=== PATIENT | male | born 1995 | race Caucasian/White ===

== ENCOUNTER 2018-09-19 16:53 | Emergency (ER) | payer OTHER, BC ==
--- NOTE | 2018-09-19 19:18 | CR ---
INDICATION: Second finger injury. Technique : Three views right hand. IMPRESSION: Negative. Dictated by Good Turk MD @ Sep 19 2018 7:16PM Signed by Dr. Good Turk @ Sep 19 2018 7:17PM
--- NOTE | 2018-09-19 19:31 | EDM.PDOC ---
ED HPI GENERAL MEDICAL PROBLEM - General Chief Complaint: Upper Extremity Injury/Pain Stated Complaint: RT INDEX FINGER POSSIBLY BROKE Time Seen by Provider: 09/19/18 18:20 Source of Information: Reports: Patient History Limitations: Reports: No Limitations - History of Present Illness INITIAL COMMENTS - FREE TEXT/NARRATIVE: HISTORY AND PHYSICAL: History of present illness: Patient is a 23-year-old male presents to the ED today with concern of right index finger injury that occurred while at work today. He states he had a piece of typing slammed his finger. Patient states following that he had noticed blood under the fingernail. Patient states he does have full range of motion and sensation of the complete hand and has been working since the incident. Patient states he does need a urine drug screen done on exam today in order to get this appointment covered by worker's compensation. Patient denies any other symptoms at this time. Patient denies fever, chills, chest pain, shortness of breath, or cough. Denies headache, neck stiff ness, change in vision, syncope, or near syncope. Denies nausea, vomiting, abdominal pain, diarrhea, constipation, or dysuria. Has not noted any blood in urine or stool. Patient has been eating and drinking appropriately. Review of systems: As per history of present illness and below otherwise all systems reviewed and negative. Past medical history: As per history of present illness and as reviewed below otherwise noncontributory. Surgical history: As per history of present illness and as reviewed below otherwise noncontributory. Social history: See social history for further information Family history: As per history of present illness and as reviewed below otherwise noncontributory. Physical exam: General: Patient is alert, oriented, and in no acute distress. Patient sitting comfortably on exam table. HEENT: Atraumatic, normocephalic, pupils equal and reactive bilaterally, negative for conjunctival pallor or scleral icterus, mucous membranes moist, TMs normal bilaterally, throat clear, neck supple, nontender, trachea midline. No drooling or trismus noted. No meningeal signs. No hot potato voice noted. Lungs: Clear to auscultation, breath sounds equal bilaterally, chest nontender. Heart: S1S2, regular rate and rhythm without overt murmur Abdomen: Soft, nondistended, nontender. Negative for masses or hepatosplenomegaly. Negative for costovertebral tenderness. Pelvis: Stable nontender. Genitourinary: Deferred. Rectal: Deferred. Skin: Intact, warm, dry. No lesions or rashes noted. Extremities: negative for cords or calf pain. Neurovascular unremarkable. Right index finger does have an underlying hematoma at the nail bed with the nail bed intact and nail intact. Patient has full range of motion of all digits of the right extremity and wrist. Radial pulses grossly intact with capillary refill less than 2 seconds. Neuro: Awake, alert, oriented. Cranial nerves II through XII unremarkable. Cerebellum unremarkable. Motor and sensory unremarkable throughout. Exam nonfocal. Notes: Usual customary procedures were used to remove the subungual hematoma. Electrocautery used to relieve the subungual hematoma. A small hole was placed in the nail with drainage of the underlying blood. Patient tolerated procedure well. Voices understanding and is agreeable to plan of care. Denies any further questions or concerns at this time. Diagnostics: hand XR, drug screen urine Therapeutics: Electrocautery relief of hematoma Prescription: None Impression: Subungual hematoma Finger injury, right index Plan: 1. You can alternate ibuprofen and Tylenol as directed for pain and discomfort. 2. Follow-up with the primary care provider as discussed. Return to the ED as needed and as discussed. Definitive disposition and diagnosis as appropriate pending reevaluation and review of above. 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 [No Known Home Meds] 09/19/18 [History] Past Medical History - Past Surgical History HEENT Surgical History: Reports: Oral Surgery, Tonsillectomy, Other (See Below) Other HEENT Surgeries/Procedures: lymph node Social & Family History - Family History Family Medical History: Noncontributory - Tobacco Use Smoking Status *Q: Never Smoker - Recreational Drug Use Recreational Drug Use: No Review of Systems - Review of Systems Review Of Systems: ROS reveals no pertinent complaints other than HPI. ED EXAM, GENERAL - Physical Exam Exam: See Below (See dictation) Course - Vital Signs Last Recorded V/S: Last Vital Signs Temp 35.8 C 09/19/18 17:00 Pulse 50 L 09/19/18 17:00 Resp 18 09/19/18 17:00 BP 141/72 H 09/19/18 17:00 Pulse Ox 100 09/19/18 17:00 - Orders/Labs/Meds Labs: Laboratory Tests 09/19/18 Range/Units 18:49 Urine Opiates Screen NEGATIVE (NEGATIVE) Ur Oxycodone Screen NEGATIVE (NEGATIVE) Urine Methadone Screen NEGATIVE (NEGATIVE) Ur Barbiturates Screen NEGATIVE (NEGATIVE) Ur Phencyclidine Scrn NEGATIVE (NEGATIVE) Ur Amphetamine Screen NEGATIVE (NEGATIVE) U Methamphetamines Scrn NEGATIVE (NEGATIVE) U Benzodiazepines Scrn NEGATIVE (NEGATIVE) U Cocaine Metab Screen NEGATIVE (NEGATIVE) U Marijuana (THC) Screen NEGATIVE (NEGATIVE) Departure - Departure Time of Disposition: 19:27 Disposition: Home, Self-Care 01 Clinical Impression: Subungual hematoma of digit of hand Qualifiers: Encounter type: initial encounter Qualified Code(s): S60.10XA - Contusion of unspecified finger with damage to nail, initial encounter Finger injury Qualifiers: Encounter type: initial encounter Laterality: right Qualified Code(s): S69.91XA - Unspecified injury of right wrist, hand and finger(s), initial encounter - Discharge Information Referrals: PCP,None [Primary Care Provider] - Additional Instructions: The following information is given to patients seen in the emergency department who are being discharged to home. This information is to outline your options for follow-up care. We provide all patients seen in our emergency department with a follow-up referral. The need for follow-up, as well as the timing and circumstances, are variable depending upon the specifics of your emergency department visit. If you don't have a primary care physician on staff, we will provide you with a referral. We always advise you to contact your personal physician following an emergency department visit to inform them of the circumstance of the visit and for follow-up with them and/or the need for any referrals to a consulting specialist. The emergency department will also refer you to a specialist when appropriate. This referral assures that you have the opportunity for follow-up care with a specialist. All of these measure are taken in an effort to provide you with optimal care, which includes your follow-up. Under all circumstances we always encourage you to contact your private physician who remains a resource for coordinating your care. When calling for follow-up care, please make the office aware that this follow-up is from your recent emergency room visit. If for any reason you are refused follow-up, please contact the [facility] Emergency Department at and asked to speak to the emergency department charge nurse. [facility] [address] [place] [id number] [address] 1. You can alternate ibuprofen and Tylenol as directed for pain and discomfort. 2. Follow-up with the primary care provider as discussed. Return to the ED as needed and as discussed.
== END 2018-09-19 19:32 | disposition home or self-care (01) ==
LOC: MW.ED 16:53
DX: S60.121A Contusion of right index finger with damage to nail, initial encounter (principal); Y99.0 Civilian activity done for income or pay; W22.8XXA Striking against or struck by other objects, initial encounter; Z88.1 Allergy status to other antibiotic agents
CPT/HCPCS: 11730; 73130-26-RT; 73130-RT; 80305-QW; 99282; 99283-25

== ENCOUNTER 2018-11-15 18:36 | Emergency (ER) | payer BC ==
--- NOTE | 2018-11-15 19:11 | EDM.PDOC ---
ED HPI GENERAL MEDICAL PROBLEM - General Chief Complaint: Laceration Stated Complaint: PT HURT LT THUMB Time Seen by Provider: 11/15/18 18:43 Source of Information: Reports: Patient History Limitations: Reports: No Limitations - History of Present Illness INITIAL COMMENTS - FREE TEXT/NARRATIVE: HISTORY AND PHYSICAL: History of present illness: Presents reporting he injured the tip of his left thumb on a skill saw just prior to arrival. Last tetanus 2 years ago. No other injuries Review of systems: As per history of present illness and below otherwise all systems reviewed and negative. Past medical history: As per history of present illness and as reviewed below otherwise noncontributory. Surgical history: As per history of present illness and as reviewed below otherwise noncontributory. Social history: No reported history of drug or alcohol abuse. Family history: As per history of present illness and as reviewed below otherwise noncontributory. Physical exam: HEENT: Atraumatic, normocephalic, pupils reactive, negative for conjunctival pallor or scleral icterus, mucous membranes moist, throat clear, neck supple, nontender, trachea midline. Lungs: Clear to auscultation, breath sounds equal bilaterally, chest nontender. Heart: S1S2, regular, negative for clicks, rubs, or JVD. Abdomen: Soft, nondistended, nontender. Negative for masses or hepatosplenomegaly. Negative for costovertebral tenderness. Pelvis: Stable nontender. Genitourinary: Deferred. Rectal: Deferred. Extremities: Atraumatic, negative for cords or calf pain. Neurovascular unremarkable. Neuro: Awake, alert, oriented. Cranial nerves II through XII unremarkable. Cerebellum unremarkable. Motor and sensory unremarkable throughout. Exam nonfocal. Diagnostics: [] Therapeutics: [] Impression: [] Plan: [] Definitive disposition and diagnosis as appropriate pending reevaluation and review of above. Left Pain Score (Numeric/FACES): 3 - Related Data Allergies Allergy/AdvReac Type Severity Reaction Status Date / Time Penicillins Allergy Anaphylactic Verified 11/15/18 18:49 Shock Home Meds: Home Meds . [No Known Home Meds] 09/19/18 [History] Past Medical History - Past Health History Medical/Surgical History: Denies Medical/Surgical History - Past Surgical History HEENT Surgical History: Reports: Oral Surgery, Tonsillectomy, Other (See Below) Other HEENT Surgeries/Procedures: lymph node Social & Family History - Family History Family Medical History: Noncontributory - Tobacco Use Smoking Status *Q: Never Smoker Second Hand Smoke Exposure: No - Recreational Drug Use Recreational Drug Use: No ED ROS GENERAL - Review of Systems Review Of Systems: ROS reveals no pertinent complaints other than HPI. ED EXAM, SKIN/RASH Exam: See Below Exam Limited By: No Limitations General Appearance: Alert, No Apparent Distress Ears: Normal External Exam Nose: Normal Inspection Throat/Mouth: Normal Inspection Head: Atraumatic, Normocephalic Neck: Normal Inspection Respiratory/Chest: No Respiratory Distress Cardiovascular: Normal Peripheral Pulses Extremities: Other (Left thumb tip 1 cm superficial avulsion) Course - Vital Signs Last Recorded V/S: Last Vital Signs Temp 36.3 C 11/15/18 18:46 Pulse 98 11/15/18 18:46 Resp 14 11/15/18 18:46 BP 124/68 11/15/18 18:46 Pulse Ox 98 11/15/18 18:46 - Re-Assessments/Exams Free Text/Narrative Re-Assessment/Exam: 11/15/18 19:08 Bacitracin and firm dressing applied by nursing Departure - Departure Time of Disposition: 19:09 Disposition: Home, Self-Care 01 Clinical Impression: Skin avulsion - Discharge Information Referrals: Fox Salazar MD [Primary Care Provider] - Additional Instructions: The following information is given to patients seen in the emergency department who are being discharged to home. This information is to outline your options for follow-up care. We provide all patients seen in our emergency department with a follow-up referral. The need for follow-up, as well as the timing and circumstances, are variable depending upon the specifics of your emergency department visit. If you don't have a primary care physician on staff, we will provide you with a referral. We always advise you to contact your personal physician following an emergency department visit to inform them of the circumstance of the visit and for follow-up with them and/or the need for any referrals to a consulting specialist. The emergency department will also refer you to a specialist when appropriate. This referral assures that you have the opportunity for follow-up care with a specialist. All of these measure are taken in an effort to provide you with optimal care, which includes your follow-up. Under all circumstances we always encourage you to contact your private physician who remains a resource for coordinating your care. When calling for follow-up care, please make the office aware that this follow-up is from your recent emergency room visit. If for any reason you are refused follow-up, please contact the [facility] Emergency Department at and asked to speak to the emergency department charge nurse. 1. Keep clean and dry. Watch for signs of infection redness swelling pussy drainage, report promptly 2. Antibiotic ointment and redress daily until scabbed over
[2018-11-15] MEDS ORDERED: Bacitracin Oint 1 GM U/D Packet TOP ONE (19:14)
== END 2018-11-15 19:32 | disposition home or self-care (01) ==
LOC: MW.ED 18:36
DX: S61.002A Unspecified open wound of left thumb without damage to nail, initial encounter (principal); Z98.890 Other specified postprocedural states; Z88.0 Allergy status to penicillin; W27.0XXA Contact with workbench tool, initial encounter
CPT/HCPCS: 99282

== ENCOUNTER 2021-04-07 17:35 | Emergency (ER) | payer BC | END 2021-04-07 18:00 | LOC: MW.ED 17:35 | DX: S81.012A Laceration without foreign body, left knee, initial encounter (principal); Z53.21 Procedure and treatment not carried out due to patient leaving prior to being seen by health care provider ==